=== PATIENT | male | born 1975 | race Hispanic/Latino ===

== ENCOUNTER 2019-07-09 10:33 | Outpatient (CLI) | payer OTHER ==
[~2019-07-09 10:33] MED LIST: Iopamidol 370 76% 100 ML VIAL ONE
--- NOTE | 2019-07-09 13:10 | CT ---
CT ABDOMEN AND PELVIS WITH IV CONTRAST 07/09/2019 CLINICAL INFORMATION: Pain in the region of the urinary bladder for 3 months. History of kidney stones COMPARISON: None. Technique: Multiple contiguous axial CT images are obtained through the abdomen and pelvis with IV contrast. Cor onal reformatted images are provided. FINDINGS: Lower Chest: within normal limits. Vessels: Normal in appearance. Abdomen: Portal vein:Patent Gallbladder: Within normal limits for CT imaging. Liver: within normal limits. Spleen: within normal limits. Pancreas: within normal limits. Adrenals: within normal limits. Kidneys: No renal or ureteral calculi are seen bilaterally, and there is no evidence of hydronephrosi s. There are 1.4 cm hypodense lesions seen in the superior pole of each kidney which demonstrate attenuation coefficients on postcontrast images suggestive of small renal cysts. No enhancing renal m ass is present. Bowel: There are innumerable colonic diverticuli seen involving the descending and sigmoid colon with mild wall thickening involving the sigmoid colon. No significant pericolonic inflammatory changes are appreciated, but early diverticulitis cannot be entirely excluded given the wall thickening throu ghout this region. Loops of small bowel are normal in caliber. Appendix: The appendix is visualized and normal in caliber. Peritoneum: No ascites or free air; no fluid collection. Mesentery and Retroperitoneum: No enlarged mesenteric or retroperitoneal lymph nodes. Abdominal Wall: within normal limits. Pelvis: Reproductive Organs: No pelvic masses. Pelvis within normal limits. Bladder: Incompletely distended but otherwise grossly normal in appearance. Bones: Degenerative changes in the lumbar spine. Osteoarthritis involves the hips bilaterally. IMPRESSION: 1. Colonic diverticulosis with colonic wall thickening involving the sigmoid colon. No definitive per icolonic inflammatory changes are appreciated, but early diverticulitis is a possibility. Clinical correlation is recommended. 2. Small bilateral renal cysts. No renal or ureteral calculi are seen bilaterally, and there is no hy dronephrosis. 3. Urinary bladder is incompletely distended but otherwise grossly normal in appearance.
== END 2019-07-09 10:34 | disposition home or self-care (01) ==
LOC: SCSCT 10:33
PROVIDERS: ATTEND Nurse Practitioner Family
DX: R39.89 Other symptoms and signs involving the genitourinary system (principal); K57.30 Diverticulosis of large intestine without perforation or abscess without bleeding; N28.1 Cyst of kidney, acquired
CPT/HCPCS: 74177; Q9967

== ENCOUNTER 2023-02-05 11:50 | Outpatient (CLI) | payer BC | END 2023-02-05 11:51 | disposition home or self-care (01) | LOC: SCSRAD 11:50 | PROVIDERS: ATTEND Nurse Practitioner Family | DX: R10.32 Left lower quadrant pain (principal) | CPT/HCPCS: 74019 ==

== ENCOUNTER 2023-05-28 14:31 | Outpatient (CLI) | payer BC | END 2023-05-28 14:32 | disposition home or self-care (01) | LOC: SCSRAD 14:31 | PROVIDERS: ATTEND Nurse Practitioner Family | DX: S33.8XXA Sprain of other parts of lumbar spine and pelvis, initial encounter (principal) | CPT/HCPCS: 72220 ==